=== PATIENT | female | born 1940 | race Two or more races ===

== ENCOUNTER 2023-01-23 20:33 | Emergency (ER) | payer OTHER ==
[~2023-01-23] VITALS: Ht 147.3 cm; Wt 68.2 kg
[~2023-01-23 20:33] MED LIST: AMOX1TAB16 PO; HYDR12.54 PO; LOSA-382 PO
[2023-01-24 01:11] VITALS: BP 148/80
== END 2023-01-24 01:12 | disposition home or self-care (01) ==
LOC: EMS 20:37
DX: S01.112A Laceration without foreign body of left eyelid and periocular area, initial encounter (principal); Z87.891 Personal history of nicotine dependence; X58.XXXA Exposure to other specified factors, initial encounter; Y93.89 Activity, other specified; Y92.89 Other specified places as the place of occurrence of the external cause; Y99.8 Other external cause status
CPT/HCPCS: 99281; Z7502

== ENCOUNTER 2023-02-27 19:12 | Emergency (ER) | payer OTHER ==
[~2023-02-27] VITALS: Ht 152.4 cm; Wt 68.2 kg
[~2023-02-27 19:12] MED LIST changes: -AMOX1TAB16 PO
[2023-02-27] MEDS ORDERED: OLOP5DRO27 OU (19:18)
[2023-02-27 22:26] LABS: BASOPHILS % (AUTO) 0.7 % (0.0-2.0); EOSINOPHILS % (AUTO) 3.8 % (1.0-6.0); HEMATOCRIT 36.8 % (36-46); HEMOGLOBIN 12.1 g/dL (12.0-16.0); LYMPHOCYTES # (AUTO) 1.1 K/uL (1.0-4.8); LYMPHOCYTES % (AUTO) 19.7 % (22.0-44.0); MEAN CORPUSCULAR HEMOGLOBIN 31.7 pg (26.0-34.0); MEAN CORPUSCULAR HGB CONC 32.8 G/dL (31.0-37.0); MEAN CORPUSCULAR VOLUME 96 fL (80-100); MONOCYTES # (AUTO) 0.9 K/uL (0.1-1.0); MONOCYTES % (AUTO) 15.1 % (2.0-9.0); NEUTROPHILS # (AUTO) 3.4 K/uL (1.8-7.7); NEUTROPHILS % (AUTO) 60.7 % (40.0-70.0); PLATELET COUNT (AUTO) 149 K/uL (150-450); RED BLOOD CELL COUNT(AUTO) 3.82 MIL/uL (4.00-5.20); RED CELL DISTRIBUTION WIDTH 15.4 % (11.5-14.5)
[2023-02-27 22:33] LABS: CALCIUM, TOTAL 8.4 mg/dL (8.8-10.5); CREATININE 1.27 mg/dL (0.60-1.30); POTASSIUM 4.3 mmol/L (3.5-5.1)
[2023-02-27 22:39] LABS: ALBUMIN 2.7 g/dL (3.4-5.0); BILIRUBIN,TOTAL 0.9 mg/dL (0.1-1.0); TOTAL PROTEIN, SERUM 7.6 g/dL (6.4-8.2)
[2023-02-27] MEDS ORDERED: SULFAMETHOX/TRIMETH DS 800-160 MG/TABLET PO ONE (23:00)
[2023-02-27] MEDS ORDERED: DEXAMETHASONE SOD PHOS 4 MG/ML 5 ML VIAL IM ONE (23:00)
[2023-02-27 23:21] VITALS: BP 118/59
== END 2023-02-27 23:38 | disposition home or self-care (01) ==
LOC: EMS 19:15
DX: L30.9 Dermatitis, unspecified (principal); Z87.891 Personal history of nicotine dependence; Z98.890 Other specified postprocedural states
CPT/HCPCS: 99283; 80053; 85025; 36415; 96372; J1100